=== PATIENT | female | born 1970 | race Caucasian/White ===

== ENCOUNTER → 2017-01-14 | Outpatient (CLI) | payer OTHER ==
[~2017-01-14] MED LIST: AMOXICILLIN PO; CODEINE; COUMADIN2.5 MG PO; COUMADIN5 MG PO; COUMADIN7.5 MG PO; FISH OIL500 MG PO; GABAPENTIN300 M2 PO; HYDROCODONE/APA1 T16 PO; KEFLEX PO; LEVAQUIN PO; LEVOXYL125 MC1 PO; PHENERGAN; PHENERGAN PR; TYLOX 5/500 CAP1 CAP PO; VICODIN PO; ZOFRAN PO; [UNRECOGNIZED DRUG - REMARK] PO
--- NOTE | ~2017-01-14 | CR184 ---
[facility] A Service [facility] RADIOLOGY TEXT RESULTS PATIENT: LISHA CLEMENTS LOCATION: [facility] : 72 UNIT #: [id number] AGE: [address]: Cori Laird APRN SEX: F ORDER DR: [id number] [address] [address] [id number] O MR#: [id number] Acc #: [id number] NAME: LISHA CLEMENTS : 1970 SEX: F STUDY DATE/TIME: 01/14/2017 12:47 UNIT: [facility] ROOM: STUDY DESCRIPTION: CR Lumbar Spine Min 4 Views Attending Physician: Cori Laird A.P.R.N. Referring Physician: Cori Laird A.P.R.N. Ordering Physician: Cori Laird A.P.R.N. Primary Care Physician: Shari Edwards Aprn MEDICAL IMAGING REPORT This report is preliminary unless electronic signature is present. EXAM Lumbar spine, 5-view series. HISTORY Low back pain for a month. TECHNIQUE There is a total of 5 images, but not labeled as such. The lateral views appear to be in neutral flexion and extension positions. There is also an AP view and a coned-down lateral view. FINDINGS The vertebral bodies and disc spaces have normal alignment. There is no subluxation. There are no pars defects. There is no significant degenerative change. IMPRESSION Normal 5-view lumbar spine series. Dictated by... Farnco Hall M.D. THIS IS AN ELECTRONICALLY VERIFIED REPORT Franco Hall M.D. at 01/15/2017 7:04 AM KEN/charissa TD: 01/14/2017 17:42 JOB #: [id number] [facility] A Service [facility] RADIOLOGY TEXT RESULTS PATIENT: LISHA CLEMENTS LOCATION: [facility] : 72 UNIT #: [id number] AGE: [address]: Cori Laird APRN SEX: F ORDER DR: MEDICAL IMAGING REPORT Page 1 of 1
--- NOTE | ~2017-01-14 | CR242 ---
[facility]. [facility] A Service of [facility] & [facility] RADIOLOGY TEXT RESULTS PATIENT: LISHA CLEMENTS LOCATION: [facility] : 72 UNIT #: [id number] AGE: [address]: Cori Laird APRN SEX: F ORDER DR: [id number] [address] [address] [id number] O MR#: [id number] Acc #: [id number] NAME: LISHA CLEMENTS : 1970 SEX: F STUDY DATE/TIME: 01/14/2017 12:47 UNIT: [facility] ROOM: STUDY DESCRIPTION: CR Thoracic Spine 2 Views Attending Physician: Cori Laird A.P.R.N. Referring Physician: Cori Laird A.P.R.N. Ordering Physician: Cori Laird A.P.R.N. Primary Care Physician: Shari Edwards Aprn MEDICAL IMAGING REPORT This report is preliminary unless electronic signature is present. EXAM Thoracic spine, 4 views, 01/14/2017 HISTORY One month history of back pain. FINDINGS Normal alignment. No fracture. Intervertebral discs are preserved. IMPRESSION Normal. Dictated by... Kei Baxter M.D. THIS IS AN ELECTRONICALLY VERIFIED REPORT Kei Baxter M.D. at 01/15/2017 3:54 PM TEV/pcl TD: 01/14/2017 21:38 JOB #: [id number] MEDICAL IMAGING REPORT Page 1 of 1
--- NOTE | ~2017-01-14 | CR151 ---
[facility]. [facility] A Service of [facility] RADIOLOGY TEXT RESULTS PATIENT: LISHA CLEMENTS LOCATION: [facility] : 72 UNIT #: [id number] AGE: [address]: Cori Laird APRN SEX: F ORDER DR: [id number] [address] [address] [id number] O MR#: [id number] Acc #: [id number] NAME: LISHA CLEMENTS : 1970 SEX: F STUDY DATE/TIME: 01/14/2017 12:47 UNIT: [facility] ROOM: STUDY DESCRIPTION: CR Hip Min 2 Views Rt Attending Physician: Cori Laird A.P.R.N. Referring Physician: Cori Laird A.P.R.N. Ordering Physician: Cori Laird A.P.R.N. Primary Care Physician: Shari Edwards Aprn MEDICAL IMAGING REPORT This report is preliminary unless electronic signature is present. EXAM Right hip 2 views 01/14/2017 HISTORY Right hip pain and low back pain for 1 month with no known injury. FINDINGS AP and oblique examination of the hip shows adequate mineralization of the bones and a normal anatomic relationship of the femoral head with the acetabulum. There are no hypertrophic changes, fractures, dislocation, or joint capsular distension. No radiopaque foreign body is present about the soft tissues of the hip. IMPRESSION Normal hip. Dictated by... Vini Choudhury M.D. THIS IS AN ELECTRONICALLY VERIFIED REPORT Vini Choudhury M.D. at 01/15/2017 8:12 AM MARIA M/funmilayo TD: 01/14/2017 20:49 JOB #: [id number] MEDICAL IMAGING REPORT Page 1 of 1
== END | disposition home or self-care (01) ==
LOC: SRAD 12:37
DX: M51.17 Intervertebral disc disorders with radiculopathy, lumbosacral region (principal); M54.6 Pain in thoracic spine; M25.551 Pain in right hip
CPT/HCPCS: 72070; 72110; 73502